=== PATIENT | male | born 1975 | race African-American/Black ===

== ENCOUNTER 2021-09-11 18:51 | Inpatient (IN) | payer MEDICARE ==
[~2021-09-11] VITALS: Ht 175.3 cm; Wt 132.7 kg
[2021-09-11] MEDS ORDERED: ALBUTEROL (0.083%) 2.5MG/3ML NEB HHN STA (20:33)
[2021-09-11] MEDS ORDERED: METHYLPREDNISOLONE SOD SUCC 125 MG/2 ML VIAL IV STA (20:33)
[2021-09-11] MEDS ORDERED: IPRATROPIUM BROMIDE (0.02%) 0.5MG/2.5ML NEB HHN STA (20:33)
[2021-09-11] MEDS ORDERED: MAGNESIUM 2 G PREMIX 50 ML IV ONE (20:45)
[2021-09-11] MEDS ORDERED: NITROGLYCERIN 0.4MG TABLET SL SL PRN (20:45)
[2021-09-11] MEDS ORDERED: ASPIRIN 81MG TABLET PO ONE (20:45)
[2021-09-11 21:16] LABS: BASOPHILS % 0.9 % (0.0-2.0); EOSINOPHILS % 2.6 % (0.0-5.0); HEMATOCRIT. 40.9 % (42.0-52.0); HEMOGLOBIN. 13.4 g/dL (14.0-18.0); LYMPHOCYTES % 19.7 % (20.0-50.0); MEAN CORPUSCULAR HEMOGLOBIN 30.6 pg (28.0-32.0); MEAN CORPUSCULAR VOLUME 93.5 fL (80.0-94.0); MEAN PLATELET VOLUME 7.8 fl (7.4-10.4); MONOCYTES % 6.1 % (2.0-8.0); NEUTROPHILS % 70.7 % (40.0-76.0); PLATELET 250 x1000/uL (130-400); RED BLOOD CELL COUNT 4.37 mill/uL (4.7-6.1); RED CELL DISTRIBUTION WIDTH 16.3 % (11.6-14.6)
[2021-09-11 21:22] LABS: CHLORIDE 110 mEq/L (98-107)
[2021-09-12] VITALS (7 sets, daily range): BP systolic 145–221; BP diastolic 67–152
[2021-09-12] MEDS ORDERED: FUROSEMIDE 100MG/10ML VIAL IVP NR (00:15)
[2021-09-12] MEDS ORDERED: IPRATROPIUM/ALBUTEROL 0.5-3(2.5)MG/3ML NEB HHN PRN ×2 (03:15→17:00)
[2021-09-12] MEDS ORDERED: ONDANSETRON HCL 4MG/2ML INJ IV PRN (03:15)
[2021-09-12] MEDS ORDERED: ACETAMINOPHEN 650MG SUPP PR PRN ×2 (03:15)
[2021-09-12] MEDS ORDERED: LORAZEPAM 0.5MG TABLET PO PRN (03:15)
[2021-09-12] MEDS ORDERED: HYDROCODONE/ACETAMINOPHEN 5/325MG TABLET PO PRN (03:15)
[2021-09-12] MEDS ORDERED: ACETAMINOPHEN 325MG TABLET PO PRN (03:15)
[2021-09-12] MEDS ORDERED: DOCUSATE SODIUM 100MG CAPSULE PO PRN (03:15)
[2021-09-12] MEDS ORDERED: MAGNESIUM/ALUMINUM HYDROXIDE/SIMETHICONE 30ML UDC PO PRN (03:15)
[2021-09-12] MEDS: CLONIDINE 0.1MG TABLET PO PRN (06:01)
[2021-09-12 06:08] LABS: HEMATOCRIT. 41.4 % (42.0-52.0); HEMOGLOBIN. 13.7 g/dL (14.0-18.0); MEAN CORPUSCULAR HEMOGLOBIN 30.6 pg (28.0-32.0); MEAN CORPUSCULAR VOLUME 92.5 fL (80.0-94.0); MEAN PLATELET VOLUME 7.6 fl (7.4-10.4); PLATELET 256 x1000/uL (130-400); RED BLOOD CELL COUNT 4.48 mill/uL (4.7-6.1); RED CELL DISTRIBUTION WIDTH 16.2 % (11.6-14.6)
[2021-09-12 06:11] LABS: CHLORIDE 107 mEq/L (98-107)
[2021-09-12 06:27] LABS: CREATINE KINASE 77 IU/L (39-308); HDL CHOLESTEROL 69 mg/dL (40-59); LDL CHOLESTEROL 86 mg/dL (5-100)
[2021-09-12 07:38] LABS: PLATELET ESTIMATE NORMAL
[2021-09-12] MEDS ORDERED: LISINOPRIL 10MG TABLET PO SCH (09:00)
[2021-09-12] MEDS: LOSARTAN POTASSIUM 100 MG TABLET PO SCH (10:02)
[2021-09-12] MEDS: ASPIRIN 81MG EC TABLET PO SCH (10:02)
[2021-09-12] MEDS: HYDRALAZINE 20MG/ML VIAL IV PRN (10:02)
[2021-09-12] MEDS: AMLODIPINE 10MG TABLET PO SCH (10:02)
[2021-09-12] MEDS: ENOXAPARIN 30MG/0.3ML SYR SUBCUT SCH ×2 (10:03→20:24)
[2021-09-12] MEDS: FUROSEMIDE 40MG/4ML VIAL IV SCH (10:11)
[2021-09-12] MEDS ORDERED: HYDRALAZINE HCL 50MG TABLET PO ONE (11:15)
[2021-09-12] MEDS ORDERED: CLONIDINE 0.1MG TABLET PO NR (11:15)
[2021-09-12] MEDS: HYDRALAZINE HCL 50MG TABLET PO SCH ×3 (11:21→21:58)
[2021-09-12] MEDS ORDERED: ASPI-1497 PO (12:01)
[2021-09-12] MEDS ORDERED: CARV3.1242 PO (12:02)
[2021-09-12] MEDS ORDERED: FURO40TA5 PO (12:02)
[2021-09-12] MEDS ORDERED: LOSA25TA26 PO (12:03)
[2021-09-12] MEDS ORDERED: APIX5TAB PO (12:04)
[2021-09-12] MEDS: METHYLPREDNISOLONE SOD SUCC 40 MG/ML VIAL IV SCH ×2 (17:47→22:04)
[2021-09-12] MEDS: NICOTINE 14MG PATCH TD SCH (17:48)
[2021-09-12] MEDS: IPRATROPIUM/ALBUTEROL 0.5-3(2.5)MG/3ML NEB HHN SCH (21:19)
[2021-09-12] MEDS: ACETAMINOPHEN 325MG TABLET PO PRN (21:58)
[2021-09-12] MEDS: GUAIFENESIN 200MG/10ML SUGAR FREE UDC PO PRN (22:04)
[2021-09-13] VITALS: BP 153/103
[2021-09-13 01:51] LABS: CLARITY URINE CLEAR (CLEAR); COLOR URINE YELLOW (YELLOW); KETONES URINE NEGATIVE (NEGATIVE); LEUKOCYTE ESTERASE URINE NEGATIVE (NEGATIVE); NITRITE URINE NEGATIVE (NEGATIVE); OCCULT BLOOD URINE NEGATIVE (NEGATIVE); PROTEIN URINE TRACE (NEGATIVE); SPECIFIC GRAVITY URINE 1.011 (1.005-1.030); UROBILINOGEN URINE 0.2 E.U./dL (0.2-1.0)
[2021-09-13 02:06] LABS: *AMPHETAMINES SCREEN URINE NEGATIVE (NEGATIVE); *BARBITURATES SCREEN URINE NEGATIVE (NEGATIVE); *BENZODIAZEPINES SCREEN URINE NEGATIVE (NEGATIVE); *COCAINE SCREEN URINE NEGATIVE (NEGATIVE); CANNABINOID URINE SCREEN NEGATIVE (NEGATIVE); METHADONE URINE SCREEN NEGATIVE (NEGATIVE); OPIATES URINE SCREEN NEGATIVE (NEGATIVE); PHENCYCLIDINE URINE SCREEN NEGATIVE (NEGATIVE)
[2021-09-13] MEDS: IPRATROPIUM/ALBUTEROL 0.5-3(2.5)MG/3ML NEB HHN SCH ×4 (02:19→19:52)
[2021-09-13 04:00] VITALS: BP 174/98
[2021-09-13] MEDS: METHYLPREDNISOLONE SOD SUCC 40 MG/ML VIAL IV SCH ×3 (05:44→22:00)
[2021-09-13] MEDS: GUAIFENESIN 200MG/10ML SUGAR FREE UDC PO PRN (05:44)
[2021-09-13] MEDS: HYDRALAZINE HCL 50MG TABLET PO SCH (05:45)
[2021-09-13 06:34] LABS: HEMOGLOBIN. 14.1 g/dL (14.0-18.0); MEAN CORPUSCULAR HEMOGLOBIN 30.8 pg (28.0-32.0); MEAN CORPUSCULAR VOLUME 91.6 fL (80.0-94.0); MEAN PLATELET VOLUME 8.4 fl (7.4-10.4); PLATELET 273 x1000/uL (130-400); RED BLOOD CELL COUNT 4.58 mill/uL (4.7-6.1); RED CELL DISTRIBUTION WIDTH 16.7 % (11.6-14.6)
[2021-09-13] MEDS: HYDRALAZINE 20MG/ML VIAL IV PRN ×2 (06:42→21:07)
[2021-09-13] MEDS: ACETAMINOPHEN 325MG TABLET PO PRN (06:48)
[2021-09-13 07:30] LABS: CHLORIDE 102 mEq/L (98-107)
[2021-09-13 07:39] LABS: HDL CHOLESTEROL 68 mg/dL (40-59); LDL CHOLESTEROL 90 mg/dL (5-100)
[2021-09-13 08:00] VITALS: BP 160/98
[2021-09-13] MEDS: LOSARTAN POTASSIUM 100 MG TABLET PO SCH (08:40)
[2021-09-13] MEDS: FUROSEMIDE 40MG/4ML VIAL IV SCH (08:41)
[2021-09-13] MEDS: ASPIRIN 81MG EC TABLET PO SCH (08:41)
[2021-09-13] MEDS: AMLODIPINE 10MG TABLET PO SCH (08:41)
[2021-09-13] MEDS: NICOTINE 14MG PATCH TD SCH (08:42)
[2021-09-13] MEDS: ENOXAPARIN 30MG/0.3ML SYR SUBCUT SCH (08:43)
[2021-09-13 11:44] VITALS: BP 168/93
[2021-09-13] MEDS: CLONIDINE 0.1MG TABLET PO PRN (11:58)
[2021-09-13] MEDS: HYDRALAZINE HCL 100MG TABLET PO SCH ×2 (13:46→22:25)
[2021-09-13] MEDS ORDERED: CLONIDINE 0.1MG TABLET PO SCH (14:00)
[2021-09-13 15:40] LABS: PLATELET ESTIMATE NORMAL
[2021-09-13 15:49] VITALS: BP 139/76
[2021-09-13 20:00] VITALS: BP 158/88
[2021-09-13] MEDS ORDERED: CARVEDILOL 12.5MG TABLET PO SCH (21:00)
[2021-09-13] MEDS: ENOXAPARIN 40MG/0.4ML SYR SUBCUT SCH (21:07)
[2021-09-13] MEDS ORDERED: NALOXONE HCL 0.4MG/ML VIAL IV PRN (22:15)
[2021-09-14] MEDS: IPRATROPIUM/ALBUTEROL 0.5-3(2.5)MG/3ML NEB HHN SCH ×4 (00:37→21:30)
[2021-09-14] MEDS: METHYLPREDNISOLONE SOD SUCC 40 MG/ML VIAL IV SCH ×3 (05:09→21:53)
[2021-09-14] MEDS: HYDRALAZINE HCL 100MG TABLET PO SCH ×3 (05:10→21:53)
[2021-09-14 07:17] LABS: BASOPHILS % 0.2 % (0.0-2.0); HEMATOCRIT. 40.8 % (42.0-52.0); HEMOGLOBIN. 13.8 g/dL (14.0-18.0); LYMPHOCYTES % 9.9 % (20.0-50.0); MEAN CORPUSCULAR HEMOGLOBIN 31.2 pg (28.0-32.0); MEAN CORPUSCULAR VOLUME 92.2 fL (80.0-94.0); MONOCYTES % 6.8 % (2.0-8.0); NEUTROPHILS % 83.1 % (40.0-76.0); PLATELET 293 x1000/uL (130-400); RED BLOOD CELL COUNT 4.43 mill/uL (4.7-6.1); RED CELL DISTRIBUTION WIDTH 16.8 % (11.6-14.6)
[2021-09-14 07:52] LABS: CHLORIDE 104 mEq/L (98-107)
[2021-09-14 07:57] VITALS: BP 156/95
[2021-09-14] MEDS: NICOTINE 7MG PATCH TD SCH (08:50)
[2021-09-14] MEDS: ENOXAPARIN 40MG/0.4ML SYR SUBCUT SCH ×2 (08:50→21:53)
[2021-09-14] MEDS: FUROSEMIDE 40MG/4ML VIAL IV SCH (08:51)
[2021-09-14] MEDS: AMLODIPINE 10MG TABLET PO SCH (08:56)
[2021-09-14] MEDS: ASPIRIN 81MG EC TABLET PO SCH (08:57)
[2021-09-14] MEDS ORDERED: CARVEDILOL 12.5MG TABLET PO SCH (09:00)
[2021-09-14] MEDS: LOSARTAN POTASSIUM 100 MG TABLET PO SCH (09:15)
[2021-09-14 11:39] VITALS: BP 145/81
[2021-09-14 16:04] VITALS: BP 127/77
[2021-09-14] MEDS: CARVEDILOL 12.5MG TABLET PO SCH (16:33)
[2021-09-14] MEDS: CLONIDINE 0.2MG TABLET PO SCH (16:34)
[2021-09-14 20:00] VITALS: BP 114/77
[2021-09-15] VITALS (7 sets, daily range): BP systolic 114–154; BP diastolic 63–90
[2021-09-15] MEDS ORDERED: LOSA100T3 PO (02:02)
[2021-09-15] MEDS ORDERED: CLON0.2T PO (02:02)
[2021-09-15] MEDS ORDERED: COR12 PO (02:02)
[2021-09-15] MEDS ORDERED: AMLO10TA80 PO (02:02)
[2021-09-15] MEDS ORDERED: FURO40TA5 MT (02:02)
[2021-09-15] MEDS: IPRATROPIUM/ALBUTEROL 0.5-3(2.5)MG/3ML NEB HHN SCH ×4 (02:33→21:08)
[2021-09-15] MEDS: HYDRALAZINE HCL 100MG TABLET PO SCH ×3 (05:57→22:06)
[2021-09-15] MEDS: METHYLPREDNISOLONE SOD SUCC 40 MG/ML VIAL IV SCH ×3 (05:57→22:06)
[2021-09-15 06:55] LABS: CHLORIDE 102 mEq/L (98-107)
[2021-09-15 07:08] LABS: BASOPHILS % 0.2 % (0.0-2.0); HEMOGLOBIN. 14.9 g/dL (14.0-18.0); LYMPHOCYTES % 7.1 % (20.0-50.0); MEAN CORPUSCULAR HEMOGLOBIN 30.5 pg (28.0-32.0); MEAN PLATELET VOLUME 8.1 fl (7.4-10.4); MONOCYTES % 2.7 % (2.0-8.0); PLATELET 324 x1000/uL (130-400); RED BLOOD CELL COUNT 4.89 mill/uL (4.7-6.1); RED CELL DISTRIBUTION WIDTH 16.7 % (11.6-14.6)
[2021-09-15] MEDS: FUROSEMIDE 40MG/4ML VIAL IV SCH (08:32)
[2021-09-15] MEDS: ENOXAPARIN 40MG/0.4ML SYR SUBCUT SCH ×2 (08:33→22:07)
[2021-09-15] MEDS: LOSARTAN POTASSIUM 100 MG TABLET PO SCH (08:33)
[2021-09-15] MEDS: CLONIDINE 0.2MG TABLET PO SCH ×2 (08:34→17:59)
[2021-09-15] MEDS: ASPIRIN 81MG EC TABLET PO SCH (08:34)
[2021-09-15] MEDS: CARVEDILOL 12.5MG TABLET PO SCH ×2 (08:34→17:58)
[2021-09-15] MEDS: AMLODIPINE 10MG TABLET PO SCH (08:35)
[2021-09-15] MEDS: NICOTINE 7MG PATCH TD SCH (08:35)
[2021-09-15] MEDS ORDERED: NICO-645 TP (12:41)
[2021-09-16 00:40] VITALS: BP 120/62
[2021-09-16] MEDS: IPRATROPIUM/ALBUTEROL 0.5-3(2.5)MG/3ML NEB HHN SCH ×2 (02:42→08:55)
[2021-09-16 04:00] VITALS: BP 143/97
[2021-09-16] MEDS: METHYLPREDNISOLONE SOD SUCC 40 MG/ML VIAL IV SCH (06:13)
[2021-09-16] MEDS: HYDRALAZINE HCL 100MG TABLET PO SCH (06:16)
[2021-09-16 08:00] VITALS: BP 144/69
[2021-09-16] MEDS: LOSARTAN POTASSIUM 100 MG TABLET PO SCH (10:23)
[2021-09-16] MEDS: ENOXAPARIN 40MG/0.4ML SYR SUBCUT SCH (10:23)
[2021-09-16] MEDS: AMLODIPINE 10MG TABLET PO SCH (10:24)
[2021-09-16] MEDS: CARVEDILOL 12.5MG TABLET PO SCH (10:24)
[2021-09-16] MEDS: FUROSEMIDE 40MG/4ML VIAL IV SCH (10:24)
[2021-09-16] MEDS: ASPIRIN 81MG EC TABLET PO SCH (10:24)
[2021-09-16] MEDS: NICOTINE 7MG PATCH TD SCH (10:24)
[2021-09-16] MEDS: CLONIDINE 0.2MG TABLET PO SCH (10:25)
[2021-09-16] MEDS ORDERED: ASPI-1406 PO (20:46)
[2021-09-16] MEDS ORDERED: APIX5TAB PO (20:47)
[2021-09-16] MEDS ORDERED: LIP40 PO (20:48)
== END 2021-09-16 12:30 | DRG 189 ==
LOC: ER 18:51 → 6WST 09-12 03:07
PROVIDERS: ADMIT Family Medicine Adult Medicine; ATTEND Family Medicine Adult Medicine
DX: J96.00 Acute respiratory failure, unspecified whether with hypoxia or hypercapnia (principal); I50.21 Acute systolic (congestive) heart failure; J44.1 Chronic obstructive pulmonary disease with (acute) exacerbation; E44.1 Mild protein-calorie malnutrition; Z68.41 Body mass index [BMI] 40.0-44.9, adult; I42.9 Cardiomyopathy, unspecified; I11.0 Hypertensive heart disease with heart failure; E66.01 Morbid (severe) obesity due to excess calories; Z20.822 Contact with and (suspected) exposure to COVID-19; E78.5 Hyperlipidemia, unspecified; I16.0 Hypertensive urgency; E87.70 Fluid overload, unspecified; G47.33 Obstructive sleep apnea (adult) (pediatric); F17.210 Nicotine dependence, cigarettes, uncomplicated; F12.90 Cannabis use, unspecified, uncomplicated; Z79.899 Other long term (current) drug therapy; Z86.73 Personal history of transient ischemic attack (TIA), and cerebral infarction without residual deficits; Z82.49 Family history of ischemic heart disease and other diseases of the circulatory system
CPT/HCPCS: 36415; 71045; 80048; 80053; 80061; 80305; 81003; 82550; 83605; 83735; 83880; 84443; 84484; 85025; 87426; 87804; 93005; 93306; 94640; 94660; 97110; 97162; 97166; 97530; 97535; 99285; J0360; J1650; J1940; J2920; J2930; J3475

== ENCOUNTER 2021-09-16 12:17 | Inpatient (IN) | payer MEDICARE, MEDICAID ==
[~2021-09-16] VITALS: Ht 175.3 cm; Wt 132.9 kg
[~2021-09-16 12:17] MED LIST: AMLO10TA80 PO; APIX5TAB PO; ASPI-1497 PO; CLON0.2T PO; COR12 PO; FURO40TA5 MT; LOSA100T3 PO; NICO-645 TP
[2021-09-16 12:30] VITALS: BP 137/79
[2021-09-16] MEDS ORDERED: NALOXONE HCL 0.4 MG/ML 1ML VIAL IV ONE (15:45)
[2021-09-16] MEDS ORDERED: ACETAMINOPHEN 650MG SUPP PR PRN (15:45)
[2021-09-16] MEDS ORDERED: ONDANSETRON HCL 4MG/2ML INJ IV PRN (15:45)
[2021-09-16] MEDS ORDERED: HYDROCODONE/ACETAMINOPHEN 5/325MG TABLET PO PRN (15:45)
[2021-09-16] MEDS ORDERED: ACETAMINOPHEN 325MG TABLET PO PRN (15:45)
[2021-09-16] MEDS ORDERED: IPRATROPIUM/ALBUTEROL 0.5-3(2.5)MG/3ML NEB HHN PRN ×3 (15:45→23:45)
[2021-09-16] MEDS ORDERED: MAGNESIUM/ALUMINUM HYDROXIDE/SIMETHICONE 30ML UDC PO PRN (15:45)
[2021-09-16] MEDS ORDERED: CLONIDINE 0.1MG TABLET PO PRN (15:45)
[2021-09-16] MEDS ORDERED: GUAIFENESIN 200MG/10ML SUGAR FREE UDC PO PRN (15:45)
[2021-09-16] MEDS ORDERED: DOCUSATE SODIUM 100MG CAPSULE PO PRN (15:45)
[2021-09-16] MEDS ORDERED: LORAZEPAM 0.5MG TABLET PO PRN (15:45)
[2021-09-16] MEDS ORDERED: HYDRALAZINE 20MG/ML VIAL IV PRN (15:45)
[2021-09-16] MEDS ORDERED: NALOXONE HCL 0.4MG/ML VIAL IV PRN (16:15)
[2021-09-16] MEDS ORDERED: HYDRALAZINE 10 MG in SODIUM CHLORIDE 0.9% 49.5 ML IV PRN (16:15)
[2021-09-16] MEDS: CARVEDILOL 12.5MG TABLET PO SCH (17:41)
[2021-09-16] MEDS: METHYLPREDNISOLONE SOD SUCC 40 MG/ML VIAL IV SCH ×2 (17:43→22:00)
[2021-09-16] MEDS: CLONIDINE 0.2MG TABLET PO SCH (17:53)
[2021-09-16 20:00] VITALS: BP 130/80
[2021-09-16] MEDS: IPRATROPIUM/ALBUTEROL 0.5-3(2.5)MG/3ML NEB HHN SCH (20:15)
[2021-09-16] MEDS ORDERED: ASPI-1406 PO (20:46)
[2021-09-16] MEDS ORDERED: APIX5TAB PO (20:47)
[2021-09-16] MEDS ORDERED: LIP40 PO (20:48)
[2021-09-16] MEDS: HYDRALAZINE HCL 100MG TABLET PO SCH (21:56)
[2021-09-16] MEDS: ENOXAPARIN 40MG/0.4ML SYR SUBCUT SCH (22:00)
[2021-09-17] MEDS: IPRATROPIUM/ALBUTEROL 0.5-3(2.5)MG/3ML NEB HHN SCH ×6 (02:10→22:23)
[2021-09-17] MEDS: METHYLPREDNISOLONE SOD SUCC 40 MG/ML VIAL IV SCH ×2 (06:34→13:31)
[2021-09-17] MEDS: HYDRALAZINE HCL 100MG TABLET PO SCH ×3 (06:35→21:43)
[2021-09-17 06:37] LABS: BASOPHILS % 0.2 % (0.0-2.0); EOSINOPHILS % 0.1 % (0.0-5.0); HEMATOCRIT. 45.2 % (42.0-52.0); HEMOGLOBIN. 15.2 g/dL (14.0-18.0); LYMPHOCYTES % 7.3 % (20.0-50.0); MEAN CORPUSCULAR HEMOGLOBIN 30.9 pg (28.0-32.0); MEAN CORPUSCULAR VOLUME 91.6 fL (80.0-94.0); MEAN PLATELET VOLUME 7.7 fl (7.4-10.4); MONOCYTES % 6.8 % (2.0-8.0); NEUTROPHILS % 85.6 % (40.0-76.0); PLATELET 331 x1000/uL (130-400); RED BLOOD CELL COUNT 4.94 mill/uL (4.7-6.1); RED CELL DISTRIBUTION WIDTH 16.7 % (11.6-14.6)
[2021-09-17 06:54] LABS: CHLORIDE 99 mEq/L (98-107)
[2021-09-17 08:00] VITALS: BP 126/60
[2021-09-17] MEDS: FUROSEMIDE 40MG/4ML VIAL IVP SCH (10:10)
[2021-09-17] MEDS: ASPIRIN 81MG TABLET PO SCH (10:10)
[2021-09-17] MEDS: LOSARTAN POTASSIUM 100 MG TABLET PO SCH (10:11)
[2021-09-17] MEDS: AMLODIPINE 10MG TABLET PO SCH (10:11)
[2021-09-17] MEDS: CARVEDILOL 12.5MG TABLET PO SCH ×2 (10:14→16:43)
[2021-09-17] MEDS: CLONIDINE 0.2MG TABLET PO SCH ×2 (10:15→16:41)
[2021-09-17] MEDS: ENOXAPARIN 40MG/0.4ML SYR SUBCUT SCH ×2 (10:16→21:43)
[2021-09-17] MEDS: NICOTINE 7MG PATCH TD SCH (10:16)
[2021-09-17] MEDS: PREDNISONE 20MG TABLET PO SCH (16:41)
[2021-09-17 20:24] VITALS: BP 124/70
[2021-09-18 05:59] LABS: HEMATOCRIT. 46.7 % (42.0-52.0); HEMOGLOBIN. 15.7 g/dL (14.0-18.0); MEAN CORPUSCULAR HEMOGLOBIN 30.9 pg (28.0-32.0); MEAN CORPUSCULAR VOLUME 92.4 fL (80.0-94.0); MEAN PLATELET VOLUME 7.5 fl (7.4-10.4); PLATELET 319 x1000/uL (130-400); RED BLOOD CELL COUNT 5.06 mill/uL (4.7-6.1); RED CELL DISTRIBUTION WIDTH 16.7 % (11.6-14.6)
[2021-09-18 06:29] LABS: CHLORIDE 100 mEq/L (98-107)
[2021-09-18] MEDS: HYDRALAZINE HCL 100MG TABLET PO SCH ×3 (06:41→22:00)
[2021-09-18 06:46] LABS: TOTAL IRON BINDING CAPACITY 310 ug/dL (250-450)
[2021-09-18 07:15] LABS: FOLIC ACID (FOLATE) SERUM 5.9 ng/mL (>5.38)
[2021-09-18 08:00] VITALS: BP 159/88
[2021-09-18] MEDS: IPRATROPIUM/ALBUTEROL 0.5-3(2.5)MG/3ML NEB HHN SCH ×3 (08:43→21:02)
[2021-09-18] MEDS: FUROSEMIDE 40MG/4ML VIAL IVP SCH (08:45)
[2021-09-18] MEDS: ASPIRIN 81MG TABLET PO SCH (08:45)
[2021-09-18] MEDS: ENOXAPARIN 40MG/0.4ML SYR SUBCUT SCH ×2 (08:46→22:16)
[2021-09-18] MEDS: CLONIDINE 0.2MG TABLET PO SCH ×2 (08:47→17:10)
[2021-09-18] MEDS: AMLODIPINE 10MG TABLET PO SCH (08:47)
[2021-09-18] MEDS: PREDNISONE 20MG TABLET PO SCH (08:48)
[2021-09-18] MEDS: LOSARTAN POTASSIUM 100 MG TABLET PO SCH (08:48)
[2021-09-18] MEDS: CARVEDILOL 12.5MG TABLET PO SCH ×2 (08:48→17:10)
[2021-09-18] MEDS: NICOTINE 7MG PATCH TD SCH (08:49)
[2021-09-18] MEDS: CYANOCOBALAMIN 1000MCG/ML VIAL IM SCH (15:37)
[2021-09-18 20:03] VITALS: BP 96/47
[2021-09-18 21:59] LABS: PLATELET ESTIMATE NORMAL
[2021-09-18] MEDS: MUPIROCIN 2% OINT 15GM NS SCH (22:17)
[2021-09-19] MEDS: IPRATROPIUM/ALBUTEROL 0.5-3(2.5)MG/3ML NEB HHN SCH ×3 (02:43→14:00)
[2021-09-19] MEDS: HYDRALAZINE HCL 100MG TABLET PO SCH ×3 (06:00→22:00)
[2021-09-19 08:00] VITALS: BP 134/68
[2021-09-19] MEDS: MUPIROCIN 2% OINT 15GM NS SCH ×2 (09:00→18:45)
[2021-09-19] MEDS: CYANOCOBALAMIN 1000MCG/ML VIAL IM SCH (09:37)
[2021-09-19] MEDS: FUROSEMIDE 40MG/4ML VIAL IVP SCH (09:37)
[2021-09-19] MEDS: NICOTINE 7MG PATCH TD SCH (09:37)
[2021-09-19] MEDS: ASPIRIN 81MG TABLET PO SCH (09:38)
[2021-09-19] MEDS: AMLODIPINE 10MG TABLET PO SCH (09:41)
[2021-09-19] MEDS: CARVEDILOL 12.5MG TABLET PO SCH ×2 (09:42→18:44)
[2021-09-19] MEDS: PREDNISONE 10MG TABLET PO SCH (09:42)
[2021-09-19] MEDS: LOSARTAN POTASSIUM 100 MG TABLET PO SCH (09:43)
[2021-09-19] MEDS: CLONIDINE 0.2MG TABLET PO SCH ×2 (09:43→18:44)
[2021-09-19] MEDS: ENOXAPARIN 40MG/0.4ML SYR SUBCUT SCH ×2 (10:25→22:44)
[2021-09-19 20:00] VITALS: BP 114/74
[2021-09-20] MEDS: IPRATROPIUM/ALBUTEROL 0.5-3(2.5)MG/3ML NEB HHN SCH ×4 (01:30→21:35)
[2021-09-20] MEDS: HYDRALAZINE HCL 100MG TABLET PO SCH ×3 (06:48→21:21)
[2021-09-20 08:00] VITALS: BP 107/63
[2021-09-20] MEDS: CLONIDINE 0.2MG TABLET PO SCH ×2 (09:00→17:00)
[2021-09-20] MEDS: MUPIROCIN 2% OINT 15GM NS SCH ×2 (09:00→17:00)
[2021-09-20] MEDS: NICOTINE 7MG PATCH TD SCH (09:55)
[2021-09-20] MEDS: ASPIRIN 81MG TABLET PO SCH (09:56)
[2021-09-20] MEDS: PREDNISONE 10MG TABLET PO SCH (09:56)
[2021-09-20] MEDS: FUROSEMIDE 40MG/4ML VIAL IVP SCH (09:56)
[2021-09-20] MEDS: CYANOCOBALAMIN 1000MCG/ML VIAL IM SCH (09:56)
[2021-09-20] MEDS: CARVEDILOL 12.5MG TABLET PO SCH ×2 (09:57→17:57)
[2021-09-20] MEDS: LOSARTAN POTASSIUM 100 MG TABLET PO SCH (09:57)
[2021-09-20] MEDS: ENOXAPARIN 40MG/0.4ML SYR SUBCUT SCH ×2 (09:59→21:22)
[2021-09-20] MEDS: AMLODIPINE 10MG TABLET PO SCH (10:08)
[2021-09-20 20:00] VITALS: BP 107/68
[2021-09-21] MEDS: IPRATROPIUM/ALBUTEROL 0.5-3(2.5)MG/3ML NEB HHN SCH ×4 (02:53→21:35)
[2021-09-21] MEDS: HYDRALAZINE HCL 100MG TABLET PO SCH ×3 (05:58→22:00)
[2021-09-21 08:00] VITALS: BP 154/81
[2021-09-21] MEDS: NICOTINE 7MG PATCH TD SCH (09:08)
[2021-09-21] MEDS: ASPIRIN 81MG TABLET PO SCH (09:09)
[2021-09-21] MEDS: CLONIDINE 0.2MG TABLET PO SCH ×2 (09:09→18:31)
[2021-09-21] MEDS: ENOXAPARIN 40MG/0.4ML SYR SUBCUT SCH ×2 (09:09→21:36)
[2021-09-21] MEDS: LOSARTAN POTASSIUM 100 MG TABLET PO SCH (09:09)
[2021-09-21] MEDS: PREDNISONE 10MG TABLET PO SCH (09:09)
[2021-09-21] MEDS: CARVEDILOL 12.5MG TABLET PO SCH ×2 (09:09→18:31)
[2021-09-21] MEDS: MUPIROCIN 2% OINT 15GM NS SCH ×2 (09:10→18:31)
[2021-09-21] MEDS: FUROSEMIDE 40MG/4ML VIAL IVP SCH (09:10)
[2021-09-21] MEDS: AMLODIPINE 10MG TABLET PO SCH (09:10)
[2021-09-21 20:00] VITALS: BP 115/66
[2021-09-22] MEDS: HYDRALAZINE HCL 100MG TABLET PO SCH ×3 (06:40→22:46)
[2021-09-22 08:00] VITALS: BP 153/75
[2021-09-22 09:02] LABS: HEMATOCRIT. 44.6 % (42.0-52.0); HEMOGLOBIN. 14.9 g/dL (14.0-18.0); MEAN CORPUSCULAR HEMOGLOBIN 31.1 pg (28.0-32.0); MEAN CORPUSCULAR VOLUME 92.8 fL (80.0-94.0); MEAN PLATELET VOLUME 7.8 fl (7.4-10.4); PLATELET 270 x1000/uL (130-400); RED BLOOD CELL COUNT 4.81 mill/uL (4.7-6.1); RED CELL DISTRIBUTION WIDTH 16.7 % (11.6-14.6)
[2021-09-22 09:18] LABS: CHLORIDE 101 mEq/L (98-107)
[2021-09-22] MEDS: IPRATROPIUM/ALBUTEROL 0.5-3(2.5)MG/3ML NEB HHN SCH ×3 (09:31→22:09)
[2021-09-22] MEDS: FUROSEMIDE 40MG/4ML VIAL IVP SCH (09:48)
[2021-09-22] MEDS: NICOTINE 7MG PATCH TD SCH (09:48)
[2021-09-22] MEDS: LOSARTAN POTASSIUM 100 MG TABLET PO SCH (09:49)
[2021-09-22] MEDS: AMLODIPINE 10MG TABLET PO SCH (09:49)
[2021-09-22] MEDS: PREDNISONE 10MG TABLET PO SCH (09:49)
[2021-09-22] MEDS: ENOXAPARIN 40MG/0.4ML SYR SUBCUT SCH ×2 (09:49→22:44)
[2021-09-22] MEDS: CARVEDILOL 12.5MG TABLET PO SCH ×2 (09:49→17:21)
[2021-09-22] MEDS: CLONIDINE 0.2MG TABLET PO SCH ×2 (09:53→17:21)
[2021-09-22] MEDS: ASPIRIN 81MG TABLET PO SCH (09:53)
[2021-09-22] MEDS: MUPIROCIN 2% OINT 15GM NS SCH ×2 (09:53→17:21)
[2021-09-22 20:00] VITALS: BP 120/52
[2021-09-22 23:21] LABS: PLATELET ESTIMATE NORMAL
[2021-09-23] MEDS: IPRATROPIUM/ALBUTEROL 0.5-3(2.5)MG/3ML NEB HHN SCH ×4 (03:58→21:15)
[2021-09-23 05:35] LABS: BASOPHILS % 0.5 % (0.0-2.0); HEMATOCRIT. 44.9 % (42.0-52.0); LYMPHOCYTES % 22.4 % (20.0-50.0); MEAN CORPUSCULAR HEMOGLOBIN 30.9 pg (28.0-32.0); MEAN CORPUSCULAR VOLUME 92.4 fL (80.0-94.0); MEAN PLATELET VOLUME 7.3 fl (7.4-10.4); MONOCYTES % 8.4 % (2.0-8.0); NEUTROPHILS % 66.7 % (40.0-76.0); PLATELET 266 x1000/uL (130-400); RED BLOOD CELL COUNT 4.86 mill/uL (4.7-6.1); RED CELL DISTRIBUTION WIDTH 16.5 % (11.6-14.6)
[2021-09-23 06:06] LABS: CHLORIDE 101 mEq/L (98-107)
[2021-09-23] MEDS: HYDRALAZINE HCL 100MG TABLET PO SCH ×3 (06:41→22:00)
[2021-09-23 08:00] VITALS: BP 142/71
[2021-09-23] MEDS: MUPIROCIN 2% OINT 15GM NS SCH ×2 (09:00→17:58)
[2021-09-23] MEDS: ASPIRIN 81MG TABLET PO SCH (09:39)
[2021-09-23] MEDS: FUROSEMIDE 40MG/4ML VIAL IVP SCH (09:39)
[2021-09-23] MEDS: CLONIDINE 0.2MG TABLET PO SCH ×2 (09:40→17:00)
[2021-09-23] MEDS: AMLODIPINE 10MG TABLET PO SCH (09:40)
[2021-09-23] MEDS: LOSARTAN POTASSIUM 100 MG TABLET PO SCH (09:40)
[2021-09-23] MEDS: CARVEDILOL 12.5MG TABLET PO SCH ×2 (09:40→17:00)
[2021-09-23] MEDS: ENOXAPARIN 40MG/0.4ML SYR SUBCUT SCH ×2 (09:44→20:55)
[2021-09-23] MEDS: NICOTINE 7MG PATCH TD SCH (09:52)
[2021-09-23 20:25] VITALS: BP 114/57
[2021-09-24] MEDS: IPRATROPIUM/ALBUTEROL 0.5-3(2.5)MG/3ML NEB HHN SCH ×4 (01:58→20:25)
[2021-09-24] MEDS: HYDRALAZINE HCL 100MG TABLET PO SCH ×3 (06:50→22:00)
[2021-09-24] MEDS: MUPIROCIN 2% OINT 15GM NS SCH ×2 (09:00→17:23)
[2021-09-24] MEDS: CLONIDINE 0.2MG TABLET PO SCH ×2 (09:00→17:00)
[2021-09-24] MEDS: NICOTINE 7MG PATCH TD SCH (09:22)
[2021-09-24] MEDS: ASPIRIN 81MG TABLET PO SCH (09:22)
[2021-09-24] MEDS: CARVEDILOL 12.5MG TABLET PO SCH ×2 (09:22→17:00)
[2021-09-24] MEDS: FUROSEMIDE 40MG/4ML VIAL IVP SCH (09:22)
[2021-09-24] MEDS: AMLODIPINE 10MG TABLET PO SCH (09:23)
[2021-09-24] MEDS: LOSARTAN POTASSIUM 100 MG TABLET PO SCH (09:23)
[2021-09-24] MEDS: ENOXAPARIN 40MG/0.4ML SYR SUBCUT SCH ×2 (09:24→22:08)
[2021-09-24] MEDS: FLUOXETINE HCL 10 MG CAPSULE PO SCH (12:19)
[2021-09-24 14:09] LABS: 25-HYDROXY VITAMIN D3 13 ng/mL (.)
[2021-09-24] MEDS ORDERED: ERGOCALCIFEROL 50000UNITS CAPSULE PO SCH (17:00)
[2021-09-24 20:00] VITALS: BP 119/69
[2021-09-24] MEDS ORDERED: TRAZODONE HCL 50MG TABLET PO SCH (21:00)
[2021-09-24] MEDS: RISPERIDONE 1MG TABLET PO SCH (22:08)
[2021-09-25] MEDS: IPRATROPIUM/ALBUTEROL 0.5-3(2.5)MG/3ML NEB HHN SCH ×3 (01:13→13:24)
[2021-09-25] MEDS: HYDRALAZINE HCL 100MG TABLET PO SCH ×2 (05:37→14:01)
[2021-09-25 08:00] VITALS: BP 150/90
[2021-09-25] MEDS: FUROSEMIDE 40MG/4ML VIAL IVP SCH (08:28)
[2021-09-25] MEDS: FLUOXETINE HCL 10 MG CAPSULE PO SCH (08:28)
[2021-09-25] MEDS: RISPERIDONE 1MG TABLET PO SCH (08:29)
[2021-09-25] MEDS: ENOXAPARIN 40MG/0.4ML SYR SUBCUT SCH (08:29)
[2021-09-25] MEDS: CARVEDILOL 12.5MG TABLET PO SCH (08:29)
[2021-09-25] MEDS: AMLODIPINE 10MG TABLET PO SCH (08:30)
[2021-09-25] MEDS: ASPIRIN 81MG TABLET PO SCH (08:30)
[2021-09-25] MEDS: LOSARTAN POTASSIUM 100 MG TABLET PO SCH (08:30)
[2021-09-25] MEDS: NICOTINE 7MG PATCH TD SCH (08:31)
[2021-09-25] MEDS: MUPIROCIN 2% OINT 15GM NS SCH (08:32)
[2021-09-25] MEDS: CLONIDINE 0.2MG TABLET PO SCH (09:00)
[2021-09-25 10:55] VITALS: BP 150/90
== END 2021-09-25 16:30 | disposition home health service (06) | DRG 291 ==
PROVIDERS: ADMIT Physical Medicine & Rehabilitation Spinal Cord Injury Medicine; ATTEND Family Medicine Adult Medicine
PROC: 5A09357 Assistance with Respiratory Ventilation, Less than 24 Consecutive Hours, Continuous Positive Airway Pressure (ICD-10-PCS; principal; 2021-09-17)
PROC: 5A09357 Assistance with Respiratory Ventilation, Less than 24 Consecutive Hours, Continuous Positive Airway Pressure (ICD-10-PCS; 2021-09-18)
PROC: 5A09357 Assistance with Respiratory Ventilation, Less than 24 Consecutive Hours, Continuous Positive Airway Pressure (ICD-10-PCS; 2021-09-20)
PROC: 5A09357 Assistance with Respiratory Ventilation, Less than 24 Consecutive Hours, Continuous Positive Airway Pressure (ICD-10-PCS; 2021-09-21)
PROC: 5A09357 Assistance with Respiratory Ventilation, Less than 24 Consecutive Hours, Continuous Positive Airway Pressure (ICD-10-PCS; 2021-09-22)
PROC: 5A09357 Assistance with Respiratory Ventilation, Less than 24 Consecutive Hours, Continuous Positive Airway Pressure (ICD-10-PCS; 2021-09-25)
DX: I11.0 Hypertensive heart disease with heart failure (principal); I50.23 Acute on chronic systolic (congestive) heart failure; J96.00 Acute respiratory failure, unspecified whether with hypoxia or hypercapnia; J44.1 Chronic obstructive pulmonary disease with (acute) exacerbation; E44.1 Mild protein-calorie malnutrition; Z68.41 Body mass index [BMI] 40.0-44.9, adult; R45.851 Suicidal ideations; I47.2 Ventricular tachycardia; I42.8 Other cardiomyopathies; E66.01 Morbid (severe) obesity due to excess calories; G47.33 Obstructive sleep apnea (adult) (pediatric); R53.81 Other malaise; R26.9 Unspecified abnormalities of gait and mobility; F17.210 Nicotine dependence, cigarettes, uncomplicated; I16.0 Hypertensive urgency; E78.5 Hyperlipidemia, unspecified; F20.9 Schizophrenia, unspecified; G47.00 Insomnia, unspecified; F12.10 Cannabis abuse, uncomplicated; F32.A Depression, unspecified; M62.81 Muscle weakness (generalized); E55.9 Vitamin D deficiency, unspecified; Z79.899 Other long term (current) drug therapy; Z79.82 Long term (current) use of aspirin; Z79.01 Long term (current) use of anticoagulants; Z91.14 Patient's other noncompliance with medication regimen; Z71.6 Tobacco abuse counseling; Z82.49 Family history of ischemic heart disease and other diseases of the circulatory system; E53.8 Deficiency of other specified B group vitamins
CPT/HCPCS: 36415; 80048; 80053; 82306; 82607; 82728; 82746; 83540; 83550; 84134; 84443; 85025; 93970; 94640; 94660; 94664; 97110; 97112; 97116; 97162; 97166; 97530; 97535; J1650; J1940; J2920; J3420; J7512

== ENCOUNTER 2022-10-04 18:18 | Emergency (ER) | payer MEDICARE, MEDICAID ==
[~2022-10-04] VITALS: Ht 172.7 cm; Wt 109.0 kg
[~2022-10-04 18:18] MED LIST changes: +ASPI-1406 PO; -ASPI-1497 PO; +LIP40 PO; -LOSA100T3 PO; +LOSA100T4 PO
[2022-10-04 18:27] VITALS: BP 136/92; PULSE 87; RESP 18; TEMP 98.4; O2SAT 99
[2022-10-04 20:14] LABS: INDEX HEMOLYSI 1 (1-3); INDEX ICTERIC 1 (1-4); INDEX LIPEMIC 1 (1-3)
[2022-10-04 20:23] LABS: ALANINE AMINOTRANSFERASE 30 IU/L (13-61); ALBUMIN 2.9 g/dL (3.4-5.0); ASPARTATE AMINOTRANSFERASE 25 IU/L (15-37); BILIRUBIN TOTAL 1.5 mg/dL (0.1-1.0); CALCIUM 9.6 mg/dL (8.5-10.1); CARBON DIOXIDE 23 mEq/L (21-32); CHLORIDE 101 mEq/L (98-107); CREATININE 1.4 mg/dL (0.6-1.3); ETHANOL BLOOD < 10 mg/dL (-10); GLUCOSE 114 mg/dL (70-105); POTASSIUM 3.9 mEq/L (3.5-5.1); PROTEIN TOTAL 9.4 g/dL (6.0-8.3); UREA NITROGEN BLOOD 24 mg/dL (7-21)
[2022-10-04 20:28] LABS: HEMATOCRIT. 44.8 % (42.0-52.0); HEMOGLOBIN. 15.4 g/dL (14.0-18.0); MEAN CORPUSCULAR HGB CONC 34.4 g/dL (31.0-37.0); MEAN CORPUSCULAR VOLUME 90.3 fL (80.0-94.0); MEAN PLATELET VOLUME 7.7 fl (7.4-10.4); PLATELET 252 x1000/uL (130-400); RED BLOOD CELL COUNT 4.96 mill/uL (4.7-6.1); RED CELL DISTRIBUTION WIDTH 14.4 % (11.6-14.6); WHITE BLOOD COUNT 9.1 x1000/uL (4.5-11.0)
[2022-10-04 20:30] LABS: SODIUM 132 mEq/L (136-145)
[2022-10-04] MEDS ORDERED: ACETAMINOPHEN 500MG TABLET PO ONE (20:30)
[2022-10-04 21:10] LABS: DIFFERENTIAL COMMENT 1
[2022-10-04] MEDS ORDERED: IBUPROFEN 400MG TABLET PO NR (23:45)
[2022-10-04] MEDS ORDERED: ACETAMINOPHEN 500MG TABLET PO NR (23:45)
[2022-10-04] MEDS ORDERED: IBUPROFEN 800MG TABLET PO ONE (23:45)
[2022-10-05 00:04] LABS: PLATELET ESTIMATE NORMAL
== END 2022-10-05 05:23 | disposition home or self-care (01) ==
LOC: ER 18:18
DX: M79.10 Myalgia, unspecified site (principal); I10 Essential (primary) hypertension; Z79.899 Other long term (current) drug therapy
CPT/HCPCS: 36415; 80053; 80320; 85025; 99283; G0480